=== PATIENT | male | born 1985 | race Caucasian/White ===

== ENCOUNTER → 2021-10-02 09:32 | Outpatient (CLI) | payer OTHER, SELFPAY ==
[2021-10-02 11:33] LABS: COVID19 -Nasal RAPID Negative (Negative)
== END ==
PROVIDERS: Visit Provider Family Medicine Sleep Medicine
DX: Z20.822 Contact with and (suspected) exposure to COVID-19 (principal)
CPT/HCPCS: 87635; C9803

== ENCOUNTER 2021-10-05 09:39 | Day surgery (SDC) | payer OTHER, SELFPAY ==
--- NOTE | 2021-10-05 | PATH_ITS ---
[facility] Accession Number: [id number] . 01 Material submitted: . PART A: colon - TRANSVERSE COLON POLYP PART B: colon - ASCENDING COLON POLYPS X2 . 02 Diagnosis: A. Transverse Colon Polyp, Biopsy: Tubular adenoma. . B. Ascending Colon Polyps, Biopsies: Fragments of sessile serrated adenoma and fragments of tubular adenoma (two polyps removed). V 10/07/2021 1019 Local . 02 Electronically signed: . Brandt Balbuena MD, PhD, Pathologist NPI- [id number] . 01 Gross description: . Part A: TRANSVERSE COLON POLYP: Received in formalin are multiple fragment(s) of ramirez, soft tissue measuring 0.1 x 0.1 x 0.1 cm to 0.6 x 0.6 x 0.6 cm submitted entirely in 1 cassette(s) Part B: ASCENDING COLON POLYPS X2: Received in formalin are 4 fragment(s) of ramirez, soft tissue measuring 0.1 x 0.1 x 0.1 cm to 0.6 x 0.5 x 0.5 cm submitted entirely in 1 cassette(s) /SHELLY 10/06/2021 0145 Local . 02 Pathologist provided ICD-10: D12.3, D12.2 . 02 CPT . 782458, 298867 Specimen Comment: A courtesy copy of this report has been sent to [phone] Performed at: 01 [facility] [address] [facility], [place], [place] [id number] MD Vishnu Haynes MD Phone: [phone] Performed at: [address] [facility] [place] [address] [place], [place] [id number] MD Lindsey Puente MD Phone: [phone]
[2021-10-05 10:06] VITALS: BP 137/89; PULSE 105; RESP 18; TEMP 36.4; O2SAT 96; BMI 45.9
[2021-10-05] MEDS: SODIUM CHLORIDE 0.9% 1,000 ML 100 ML IV (10:06)
--- NOTE | 2021-10-05 10:25 | PM.HP.1 ---
History of Present Illness History of Present Illness Date Patient Seen: 10/05/21 Time Patient Seen: 10:25 Chief complaint: SDC Narrative: Family history of colon cancer in his dad. Patient History Family & Social History Social History: household members spouse Tobacco & Substance use: Smoking Status Current every day smoker Smoking packs per day 1 alcohol intake never Substance Use Type does not use Meds Home Medications and Allergies Home Medications Medication Instructions Recorded Confirmed Type amlodipine 5 mg tablet 5 mg PO DAILY 10/02/21 10/05/21 History losartan 100 100 tab PO DAILY 10/02/21 10/05/21 History mg-hydrochlorothiazide 12.5 mg tablet rosuvastatin 10 mg tablet 10 mg PO DAILY 10/02/21 10/05/21 History venlafaxine 75 mg capsule,extended 75 mg PO DAILY 10/02/21 10/05/21 History release 24 hr Allergies Allergy/AdvReac Type Severity Reaction Status Date / Time No Known Drug Allergies Allergy Verified 10/05/21 09:54 Review of Systems Review of Systems ROS: Yes All systems reviewed with the patient and are negative except as otherwise documented Exam Vital Signs (past 8 hours): - 10/05/21 10:06 Temperature 97.5 F L Pulse Rate 105 H Respiratory Rate 18 Blood Pressure 137/89 Pulse Oximetry 96 Oxygen Delivery Method Room Air Const General: cooperative and comfortable Orientation: alert HENMT Head: normocephalic Ears: external ears normal Nose: external nose normal Face and sinus: normal facial exam Mouth: oral mucosae normal Eyes General: appearance normal, both eyes and all related structures Neck Neck: normal visual inspection Chest Chest: normal inspection of the chest Resp Effort & Inspection: normal respiratory effort Cardio Rate: regular rate GI Inspection: normal to inspection Skin General: no rashes or lesions noted and No jaundice Neuro General: patient alert and moves all extremities Cognition: normal cognition Speech: speech normal Extrem General: no pedal edema Psych Appearance: grossly normal Assessment & Plan Assessment & Plan narrative: 36-year-old male with a family history of colon cancer in his dad. Colonoscopy is pursued today. Time Spent With Patient Critical Care time: I spent a total of [] minutes of critical care time on this patient's care today; this time is exclusive of procedural time.
--- NOTE | 2021-10-05 10:27 | PM.PREOP ---
Pre-operative Note COVID-19 COVID-19 status: Negative Result date/Date tested (Pos, Neg/Pending): 10/02/21 Criteria for continued procedure: Possibility delay results in more complex future surgery or treatment Interval Note History & Physical reviewed/Exam performed by Physician: Yes Changes to H&P: No ASA Class (for procedural sedation): III
--- NOTE | 2021-10-05 11:34 | SUR.OPER ---
CECUM AT 1128
--- NOTE | 2021-10-05 11:44 | PM.OP.COLON ---
Operative Date/Time/Diagnoses Date of procedure: 10/05/21 Time of procedure: 11:45 Pre-op diagnosis: Family history of colon cancer Post-op diagnosis: same Procedure & Clinicians Study performed: Colonoscopy with hot snare polypectomy Same procedure as scheduled: Yes Indications: Family history of colon cancer Surgeon: Pool De Anda Procedure Notes SCOAP/Timeout: Done Procedure in detail: After the risks and benefits were explained, written and verbal informed consent was obtained. The patient was brought into the procedure room and placed into the left lateral decubitus position. Please see nurse svp digital [employer] note for sedation details. Digital rectal examination was accomplished. The scope was introduced into the patient and advanced under direct visualization to the cecum as identified by the appendiceal orifice and ileocecal valve. The scope was slowly withdrawn to carefully examine the mucosa for any defects or lesions. Comprehensive imaging was accomplished throughout the rectum including the dentate line. The colon was decompressed, the scope was then removed from the patient who tolerated the procedure well. Bowel prep fair at best Adult colonoscope Scope withdrawal time: 15 minutes Sedation minutes: 25 Complications: none Impression: There was an approximately 8 mm semi pedunculated polyp in the transverse removed with hot snare. In the ascending colon there was a semi pedunculated 8 mm polyp and a 9 mm sessile polyp both removed with snare. Within the limitations of bowel prep I did not see any additional pathology including retroflexed views from within the rectum. Endoscopic diagnosis 1. Suboptimal bowel prep 2. Multiple colon polyps Post-procedure Plan for aftercare: 1. Await histopathology 2. Repeat colonoscopy with an extra day of prep in 1 year Disposition: PACU
[2021-10-05 11:49] VITALS: BP 133/59; PULSE 91; RESP 16; TEMP 36.4; O2SAT 95
[2021-10-05 11:55] VITALS: BP 108/54; PULSE 91; RESP 16; O2SAT 95
[2021-10-05 12:02] VITALS: BP 129/60; PULSE 83; RESP 15; O2SAT 98
== END 2021-10-05 12:08 | disposition home or self-care (01) ==
PROVIDERS: PCP Family Medicine; Referring Provider Internal Medicine Gastroenterology; Visit Provider Internal Medicine Gastroenterology
PROC: 0DJD8ZZ Inspection of Lower Intestinal Tract, Via Natural or Artificial Opening Endoscopic (ICD-10-PCS; CPT 45378; principal; 2021-10-05 11:00)
DX: Z12.11 Encounter for screening for malignant neoplasm of colon (principal); Z80.0 Family history of malignant neoplasm of digestive organs; F17.210 Nicotine dependence, cigarettes, uncomplicated; D12.3 Benign neoplasm of transverse colon; D12.2 Benign neoplasm of ascending colon
CPT/HCPCS: 45385; J2704

== ENCOUNTER 2023-05-30 09:20 | Day surgery (SDC) | payer OTHER, SELFPAY ==
--- NOTE | 2023-05-30 | PATH_ITS ---
[facility] Accession Number: [id number] No. of containers..03 Tissue . 01 Material submitted: . PART A: colon - ASCENDING PART B: colon - TRANSVERSE PART C: rectum - RECTAL POLYP . 01 Diagnosis: A. Ascending Colon, Polyp: Sessile serrated adenoma. . B. Transverse Colon, Polyp: Sessile serrated adenoma. . C. Rectum, Polyp: Hyperplastic polyp. MRV 06/08/2023 1747 Local . 01 Electronically signed: . Lindsey Puente MD, Pathologist NPI- [id number] . 01 Gross description: . Part A: ASCENDING : Received in formalin is 1 fragment(s) of ramirez, soft tissue measuring 0.6 x 0.6 x 0.4 cm submitted entirely in 1 cassette(s) Part B: TRANSVERSE : Received in formalin is 1 fragment(s) of ramirez, soft tissue measuring 0.3 x 0.3 x 0.2 cm submitted entirely in 1 cassette(s) Part C: RECTAL POLYP: Received in formalin is 1 fragment(s) of ramirez, soft tissue measuring 0.3 x 0.3 x 0.2 cm submitted entirely in 1 cassette(s) /SHELLY 05/31/2023 1914 Local . 01 Pathologist provided ICD-10: D12.2, D12.3, K62.1 . 01 CPT . 985277, 427049, 212961 Specimen Comment: A courtesy copy of this report has been sent to [phone] Performed at: 01 [facility] [address] [place] [address] [address] [facility], [place], [place] [id number] MD Vishnu Haynes MD Phone: [phone]
[2023-05-30 09:35] VITALS: BP 143/94; PULSE 116; RESP 16; TEMP 36.2; O2SAT 95; BMI 50.1
[2023-05-30] MEDS: LACTATED RINGERS 1,000 ML 120 ML IV (09:49)
--- NOTE | 2023-05-30 10:34 | PM.HP.1 ---
History of Present Illness History of Present Illness Date Patient Seen: 05/30/23 Time Patient Seen: 10:35 Chief complaint: Colonoscopy Narrative: Personal history of colon polyps. Family history of colon cancer. Here for surveillance. He took a double prep. [facility] Social History household members: spouse Smoking Status: Current every day smoker alcohol intake: never Meds Home Medications and Allergies Home Medications Medication Instructions Recorded Confirmed Type amlodipine 5 mg tablet 5 mg PO DAILY 10/02/21 05/30/23 History losartan 100 100 tab PO DAILY 10/02/21 05/30/23 History mg-hydrochlorothiazide 12.5 mg tablet rosuvastatin 10 mg tablet 10 mg PO DAILY 10/02/21 05/30/23 History venlafaxine 75 mg capsule,extended 75 mg PO DAILY 10/02/21 05/30/23 History release 24 hr Allergies Allergy/AdvReac Type Severity Reaction Status Date / Time No Known Drug Allergies Allergy Verified 10/05/21 09:54 Review of Systems Review of Systems ROS: Yes All systems reviewed with the patient and are negative except as otherwise documented Exam Vital Signs (past 8 hours): - 05/30/23 09:35 Temperature 97.2 F L Pulse Rate 116 H Respiratory Rate 16 Blood Pressure 143/94 H Pulse Oximetry 95 Oxygen Delivery Method Room Air Oxygen Delivery Method Room Air Const General: cooperative Nutritional Appearance: obese HENMT Head: normal to inspection Eyes General: appearance normal, both eyes and all related structures Neck Neck: normal visual inspection Chest Chest: normal inspection of the chest Resp Effort & Inspection: normal respiratory effort Cardio Rate: regular rate GI Inspection: normal to inspection Skin General: no rashes or lesions noted Neuro General: patient alert and patient awake Extrem General: normal to inspection and no pedal edema Psych Appearance: grossly normal Assessment & Plan Assessment & Plan narrative: 38-year-old male with a family history of colon cancer and a personal history of adenomatous colon polyps. Surveillance colonoscopy is pursued today.
--- NOTE | 2023-05-30 10:36 | PM.PREOP ---
Pre-operative Note Interval Note History & Physical reviewed/Exam performed by Physician: Yes Changes to H&P: No ASA Class (for procedural sedation): III
--- NOTE | 2023-05-30 11:56 | PM.OP.COLON ---
Operative Date/Time/Diagnoses Date of procedure: 05/30/23 Time of procedure: 11:56 Pre-op diagnosis: Personal history of colon polyps. Family history of colon cancer Post-op diagnosis: same Procedure & Clinicians Study performed: Colonoscopy with hot snare polypectomy, cold snare polypectomy, and cold forceps polypectomy. Same procedure as scheduled: Yes Indications: Personal history of colon polyps. Family history of colon cancer Surgeon: Pool De Anda Procedure Notes SCOAP/Timeout: Done Procedure in detail: After the risks and benefits were explained, written and verbal informed consent was obtained. The patient was brought into the procedure room and placed into the left lateral decubitus position. Please see anesthesia notes for sedation details. Digital rectal examination was accomplished. The scope was introduced into the patient and advanced under direct visualization to the cecum as identified by the appendiceal orifice and ileocecal valve. The scope was slowly withdrawn to carefully examine the mucosa for any defects or lesions. Comprehensive imaging was accomplished throughout the rectum including the dentate line. The colon was decompressed, the scope was then removed from the patient who tolerated the procedure well. Adult colonoscope Bowel prep fair Scope withdrawal time: 10 minutes Sedation minutes: 26 Complications: none Impression: Prep was fair. There was a moderate amount of green liquid still remaining requiring copious irrigation and suction for an adequate evaluation. In the ascending colon there was a 7 mm sessile polyp removed with hot snare. In the transverse colon there was a diminutive polyp removed with cold forceps. In the rectum there was a 5 mm polyp removed with cold snare. Within the limitations of the prep, no significant additional mucosal pathology was appreciated. Endoscopic diagnosis 1. Multiple colon polyps 2. Fair bowel prep Post-procedure Plan for aftercare: 1. Await histology. 2. Repeat colonoscopy with an extended prep in 2-3 years. Disposition: PACU
[2023-05-30 11:59] VITALS: BP 95/59; PULSE 98; RESP 16; O2SAT 94
[2023-05-30 12:03] VITALS: BP 135/85; PULSE 90; RESP 12; O2SAT 92
[2023-05-30 12:10] VITALS: BP 121/83; PULSE 96; RESP 15; O2SAT 94
[2023-05-30 12:19] VITALS: BP 112/67; PULSE 91; RESP 16; TEMP 37; O2SAT 95
== END 2023-05-30 12:32 | disposition home or self-care (01) ==
PROVIDERS: PCP Family Medicine; Referring Provider Internal Medicine Gastroenterology; Visit Provider Internal Medicine Gastroenterology
PROC: 0DJD8ZZ Inspection of Lower Intestinal Tract, Via Natural or Artificial Opening Endoscopic (ICD-10-PCS; CPT 45378; principal; 2023-05-30 10:30)
DX: Z12.11 Encounter for screening for malignant neoplasm of colon (principal); Z86.010 Personal history of colon polyps; Z80.0 Family history of malignant neoplasm of digestive organs; D12.2 Benign neoplasm of ascending colon; D12.3 Benign neoplasm of transverse colon; D12.8 Benign neoplasm of rectum
CPT/HCPCS: 45385; 45380